=== PATIENT | female | born 1975 | race Caucasian/White ===

== ENCOUNTER 2021-07-24 18:11 | Emergency (ER) | payer OTHER ==
[~2021-07-24] VITALS: Ht 149.9 cm; Wt 59.0 kg
[~2021-07-24 18:11] MED LIST: MAGONATE PO
[2021-07-24] MEDS ORDERED: PERCOGESIC EXT1 EACH PO (22:04)
== END 2021-07-24 22:16 | disposition home or self-care (01) ==
LOC: ER 18:11
DX: G44.209 Tension-type headache, unspecified, not intractable (principal); M62.838 Other muscle spasm; Z88.2 Allergy status to sulfonamides